=== PATIENT | female | born 1970 | race Caucasian/White ===

== ENCOUNTER 2017-04-28 11:36 | Emergency (ER) | payer SELFPAY ==
[~2017-04-28] VITALS: Ht 165.1 cm; Wt 77.0 kg
[~2017-04-28 11:36] MED LIST: DICL75 PO; IBUP100S PO; TRAM50 PO
[2017-04-28 11:39] VITALS: BP 136/98; PULSE 85; RESP 15; TEMP 98.4; O2SAT 98
[2017-04-28] MEDS ORDERED: LIDOCAINE 1%/EPINEPHrine 1:100,000 SOLN 20 ML VIAL INFIL ONE ×3 (12:00→12:15)
[2017-04-28] MEDS ORDERED: TETANUS/DIPHTHERIA TOXOID ADULT 0.5 ML VIAL IM ONE (12:00)
--- NOTE | 2017-04-28 12:09 | PD ---
HPI . scalp laceration last night Chief Complaint: Laceration/Skin Injury Time Seen by Provider: 12:09 Travel History International Travel<30 days: No Contact w/Intl Traveler<30days: No Traveled to known affect area: No History of Present Illness HPI 46- year old female presents to the ED complaining of a laceration to her right scalp. The patient reports that she was celebrating last night and upon getting into her bed she fell and hit her head on her night stand. She denies any loss of consciousness and reports that right after the injury happened she went swimming in a pool. She currently rates her pain as a 5/10. She denies any nausea, vomiting, diarrhea, or any lightheadedness or dizziness prior to the fall. The patient does not remember when she received her last tetanus shot but thinks it may be longer than 5 years. [facility] Social History Alcohol Use: Yes (SOCIAL) Tobacco Use: No Substance Use: No Allergies-Medications (Allergen,Severity, Reaction): Coded Allergies: No Known Allergies (Verified , 04/28/17) Reported Meds & Prescriptions Reported Meds & Active Scripts Active Bactrim DS (Sulfamethoxazole-Trimethoprim) 800-160 Mg Tab 1 Tab PO BID Review of Systems General / Constitutional: No: Fever, Chills, Weight Gain, Weight Loss, Other Eyes: No: Diploplia, Blurred Vision, Photophobia, Drainage, Redness, Foreign Body Sensation, Pain, Tearing, Blind Spots, Visual changes, Blindness, Other HENT: No: Headaches, Vertigo, Lightheadedness, Sore Throat, Rhinitis, Rhinorrhea, Congestion, Nosebleed, Neck Stiffness, Neck Pain, Masses, Gingival Bleeding, Dental Difficulties, Ear Discharge, Earache, Other Cardiovascular: No: Chest Pain or Discomfort, Palpitations, Irregular Rhythm, Tachycardia, Diaphoresis, Syncope, Dyspnea on exertion, Varicosities, Edema, Cyanosis, Varicosities, Phlebitis, Claudication, Other Respiratory: No: Cough, Shortness of Breath, Wheezing, Sneezing, Orthopnea, Hemoptysis, Stridor, Night Sweats, Pleuritic Pain, Other Gastrointestinal: No: Nausea, Vomiting, Diarrhea, Abdominal Pain, Hematemesis, Hematochezia, Constipation, Changes in Bowel Habits, Indigestion, Dysphagia, Loss of Appetite, Other Genitourinary: No: Urgency, Frequency, Dysuria, Nocturia, Hematuria, Decreased Urinary Output, Oliguria, Hesitancy, Dribbling, Incontinence, Pelvic Pain, Flank Pain, Dyspareunia, Discharge, Dysmenorrhea, Menorrhagia, Metorrhagia, Vaginal Bleeding, Other Musculoskeletal: No: Myalgias, Arthralgias, Limited ROM, Weakness, Cramping, Edema, Pain, Atrophy, Other Skin: Positive Other (scalp laceration ), No Rash, No Itching, No Dryness, No Lumps, No Hives, No Change in Pigmentation, No Change in nails, No Alopecia, No Lesions, No Breast Lumps, No Breast Tenderness, No Breast Swelling Neurologic: No: Weakness, Dizziness, Syncope, Focal Abnormalities, Coordination Problem, Tremor, Ataxia, Headache, Change in Mentation, Slurred Speech, Paresthesia, Incontinence, Seizures, Sensory Disturbance, Other Psychiatric: No: Anxiety, Depression, Suicidal Ideations, Disorder of Thought, Mood Disorder, Substance Abuse, Homicidal Ideation, Other Endocrine: No: Heat Intolerance, Cold Intolerance, Polyuria, Polydipsia, Other Hematologic/Lymphatic: No: Easy Bruising, Lymph Node Enlargement, Other Physical Exam Narrative GENERAL: Patient appears to be recovering from intoxication. Slightly disheveled SKIN: Warm and dry. HEAD: 3.5 cm laceration to right scalp. Normocephalic. EYES: Pupils equal and round. No scleral icterus. No injection or drainage. ENT: No nasal bleeding or discharge. Mucous membranes pink and moist. NECK: Trachea midline. No JVD. CARDIOVASCULAR: Regular rate and rhythm. No S3, S4, or murmurs. RESPIRATORY: No accessory muscle use. Clear to auscultation. Breath sounds equal bilaterally. No wheezing, rales, or rhonchi. GASTROINTESTINAL: Visual inspection appears normal. MUSCULOSKELETAL: Extremities without clubbing, cyanosis, or edema. No obvious deformities. ambulatory NEUROLOGICAL: Awake and alert. No obvious cranial nerve deficits. Motor grossly within normal limits. Five out of 5 muscle strength in the arms and legs. Normal speech. PSYCHIATRIC: Appropriate mood and affect; insight and judgment normal. Data Data Last Documented VS Vital Signs Date Time Temp Pulse Resp B/P (MAP) Pulse Ox O2 Delivery O2 Flow Rate FiO2 04/28/17 12:44 04/28/17 11:39 98.4 85 15 98 Orders Orders Tetanus/Diphtheria Tox Adult (Tetanus/Di (04/28/17 12:00) Lidocai-Epi 1%-1:100,000 Inj (Xylocaine- (04/28/17 12:00) Lidocai-Epi 1%-1:100,000 Inj (Xylocaine- (04/28/17 12:15) Lidocai-Epi 1%-1:100,000 Inj (Xylocaine- (04/28/17 12:15) Lidocai-Epi 1%-1:100,000 Inj (Xylocaine- (04/28/17 12:21) MDM Medical Decision Making Medical Screen Exam Complete: Yes Emergency Medical Condition: Yes Medical Record Reviewed: Yes Differential Diagnosis Scalp laceration, Fall, head injury Narrative Course 46 yr old female here s/p falling hitting her head on a dresser. There is a scalp laceration. She gave verbal consent to repair. 9 elaine placed without incident. Patient does not meet criteria for CT scan of the head per [place] [facility] rules. There was no loss of consciousness. There was no episode of confusion. I discussed this with her. She is in agreement. Recommend staple removal in 7 days. Advise follow-up primary care provider or emergency department. Bactrim provided for antibiotic coverage. Patient verbalized understanding of instructions, questions were answered, and thanked me for their care. I advised them if their condition worsens, please return to the nearest emergency room for further care. Procedures Procedure Narrative LACERATION LOCATION: Right Scalp LENGTH: 3.5 cm NUMBER OF STITCHES/ELAINE: 9 Elaine to scalp laceration: Laceration was first anesthesized using 3 mL of 1% Lidocaine with Epinephrine. Laceration was then well irrigated using normal saline. 9 elaine were then placed to fully close the laceration Diagnosis Primary Impression: Scalp laceration Qualified Codes: S01.01XA - Laceration without foreign body of scalp, initial encounter Patient Instructions: General Instructions Additional Instructions: Keep area clean and dry. Use gauze as we discussed and change 1-2 times a day. Watch for signs of infection: fever, redness, swelling, warmth, pus or drainage , red streaks around the cut, and increased pain from the area. If you received a tetanus shot, you may experience tenderness at the injection site. This is normal. Please return to emergency department if your symptoms return or worsen. Follow up with your primary care provider. Take medications as prescribed. The elaine (9) will need to be removed in approximately 7 days. Follow-up with your primary care provider or return to the emergency department. Med/Other Pt SpecificInfo: Prescription(s) given Scripts Sulfamethoxazole-Trimethoprim (Bactrim DS) 800-160 Mg Tab 1 TAB PO BID for Infection, #20 TAB 0 Refills Prov: Marquez Daigle MD 04/28/17 Disposition: 01 DISCHARGE HOME Condition: Stable Sherron Morrison Apr 28, 2017 12:09
[2017-04-28] MEDS ORDERED: LIDOCAINE 1%/EPINEPHrine 1:100,000 SOLN 30 ML VIAL ONE (12:21)
[2017-04-28] MEDS ORDERED: BACT800T5 PO (12:40)
== END 2017-04-28 12:49 | disposition home or self-care (01) ==
LOC: NEPK 11:36
DX: S01.01XA Laceration without foreign body of scalp, initial encounter (principal); Z23 Encounter for immunization; W06.XXXA Fall from bed, initial encounter
CPT/HCPCS: 12002; 90471; 90714